=== PATIENT | female | born 2005 | race Caucasian/White ===

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

== ENCOUNTER 2025-08-06 23:10 | Inpatient (IN) | payer OTHER ==
[~2025-08-06] VITALS: Ht 165.1 cm; Wt 77.5 kg
[2025-08-06] MEDS ORDERED: NS 1,000 ML IV ONE ×2 (23:13→23:50)
[2025-08-06 23:25] LABS: Calcium, Ionized (POC) 1.17 mmol/L (1.10-1.46); Chloride (POC) 103 mmol/L (98-108); Creatinine (POC) 0.8 mg/dL (0.6-1.0); Glucose (ISTAT POC) 101 mg/dL (70-99); Hematocrit (POC) 40.0 % (36.0-46.0); Hemoglobin (POC) 13.6 g/dL (12.0-16.0); Potassium (POC) 4.6 mmol/L (3.5-5.5); Sodium (POC) 144 mmol/L (135-148); Total CO2 (POC) 22 mmol/L (21-32)
[2025-08-06 23:38] LABS: BASOPHILS ABSOLUTE AUTO 0.02 K/mm3 (0.00-0.23); BASOPHILS PERCENT AUTO 0 % (0-2); EOSINOPHILS ABSOLUTE AUTO 0.04 K/mm3 (0.00-0.68); EOSINOPHILS PERCENT AUTO 0 % (0-6); Hematocrit 39.1 % (33.0-51.0); Hemoglobin 13.0 g/dL (11.5-16.0); IMMATURE GRAN ABSOLUTE AUTO 0.04 K/mm3 (0.00-0.10); IMMATURE GRAN PERCENT AUTO 0 % (0-1); LYMPHOCYTES ABSOLUTE AUTO 3.81 K/mm3 (0.84-5.20); LYMPHOCYTES PERCENT AUTO 33 % (21-46); MONOCYTES ABSOLUTE AUTO 0.86 K/mm3 (0.16-1.47); MONOCYTES PERCENT AUTO 7 % (4-13); Mean Corpuscular HGB Conc 33.2 g/dL (31.5-36.5); Mean Corpuscular Volume 90 fL (80-100); NEUTROPHILS ABSOLUTE AUTO 6.92 K/mm3 (1.96-9.15); NEUTROPHILS PERCENT AUTO 59 % (41-73); NRBC ABSOLUTE 0.00 K/mm3 (0.00-0.02); NRBC Auto 0.0 /100 WBC (0.0-0.2); Platelet Count 268 K/mm3 (150-400); RDW Coefficient Variation 11.6 % (11.7-14.2); RDW Standard Deviation 38.0 fL (35.1-46.3)
[2025-08-06] MEDS ORDERED: Sodium Bicarb 8.4% 1 MEQ/ML 50 ML Vial IV ONE (23:45)
[2025-08-06] MEDS ORDERED: Ipratropium/Albuterol SulF 2.5-0.5MG/3 ML Amp INH ONE (23:50)
[2025-08-06 23:54] LABS: Ethanol (Alcohol), Blood, Med <3 mg/dL; Magnesium, Blood 2.1 mg/dL (1.6-2.4); Salicylate <1.7 mg/dL (2.8-20.0); Thyroid Stimulating Hormone 35.100 uIU/mL (0.360-4.800)
[2025-08-06 23:56] LABS: Acetaminophen, Random <2.0 ug/mL (10.0-30.0); Alanine Aminotransfer (ALT/SGP 23 U/L (12-78); Albumin, Blood 3.9 g/dL (3.4-5.0); Albumin/Globulin Ratio 1.1 (0.8-1.8); Anion Gap 11 mmol/L (3-11); Aspartate Aminotrans (AST/SGOT 14 U/L (12-37); Bilirubin, Total 0.4 mg/dL (0.1-1.0); Blood Urea Nitrogen 9 mg/dL (8-24); CO2, Blood 24 mmol/L (21-32); Calcium, Blood 8.7 mg/dL (8.5-10.1); Chloride, Blood 107 mmol/L (98-108); Creatinine, Blood 0.76 mg/dL (0.40-1.00); Globulin, Blood 3.4 g/dL (2.2-4.0); Glucose, Blood 104 mg/dL (70-99); Potassium, Blood 4.5 mmol/L (3.5-5.5); Sodium, Blood 137 mmol/L (136-145); Total Protein, Blood 7.3 g/dL (6.4-8.2)
[2025-08-07] VITALS (30 sets, daily range): BP systolic 77–117; BP diastolic 43–107
[2025-08-07] MEDS ORDERED: Midazolam HCL 50 MG in NS 40 ML IV PRN (00:05)
[2025-08-07] MEDS ORDERED: FentaNYL Citrate 50 MCG/ML 2 ML Injection IV ONE (00:05)
[2025-08-07] MEDS ORDERED: Sodium Bicarb 8.4% Inj 150 MEQ in Dextrose 5% 1,000 ML IV SCH (00:10)
[2025-08-07 01:03] LABS: pH Blood Venous 7.26 (7.34-7.37)
[2025-08-07 02:10] LABS: Source, Urine Clean Catch
[2025-08-07 02:13] LABS: Glucose Qualitative, Urine Neg (Neg); Ketones, Urine Neg (Neg); Leukocyte Esterase, Urine Neg (Neg); Protein, Urine 1+ (Neg); Specific Gravity, Urine 1.010 (1.003-1.022); Urobilinogen, Urine NORM (Normal)
[2025-08-07 02:14] LABS: Bilirubin, Urine 2+ (Neg); Color, Urine Yellow (P-Yellow)
[2025-08-07 02:39] LABS: U Amphetamine Screen Not Detected; U Barbiturate Screen Not Detected; U Benzodiazapine Screen Not Detected; U Buprenorphine Screen Not Detected; U Cannabinoids Screen Not Detected; U Cocaine Screen Not Detected; U Methadone Screen Not Detected; U Methamphetamine Screen Not Detected; U Opiates Screen Not Detected; U Oxycodone Screen Not Detected; U Phencyclidine Screen Not Detected
[2025-08-07] MEDS ORDERED: FLU VACC TS2025-26(6MOS UP)/PF 45 MCG/0.5 ML SYRINGE IM SCH (04:20)
[2025-08-07] MEDS ORDERED: Albuterol 2.5 MG/3 ML VIAL INH PRN (04:25)
--- NOTE | 2025-08-07 05:00 | NUR ---
ASSUMED CARE. PT ARRIVED FROM ER VIA STRETCH. PT CRYING AND CAN FOLLOW COMMANDS. SODIUM BICARB INFUSING AT 150. VERSED AT 10 AND WEANED OF. PROPOFOL STARTED AT 10 MICS. PTBP 86/42 ANDFENTANYL DECREASED TOP 100 MICS. OG DRAING BRIGHT GREE SUBSTANCE. VENT AT AC 16, TV350, PEEP 5, AND FIO2 40%. F/C DRAING ALISSA SUBSTANCE.
--- NOTE | 2025-08-07 05:00 | NUR ---
END OF SHIFT. PT ARRIVED AT 5AM. PT CRYING BUT FOLLOWS COMMANDS. VERSED OFF. BP SOFT WITH MAP 58. FENTANYL AT 150 MICS AND TITRATED DOWN. PROPFOL STARTED. DR. WALDEN UPDATED ABOUT SOFT BP AND FENTANYLD/C. LR 500CC BOLUS GIVEN. F/C PATENT. OG DRAINING BRIGHT GREEN SUBSTANCE. POISON CONTROL UPDATED.
[2025-08-07] MEDS ORDERED: Inderal 20 mg T20 MG PO (05:24)
[2025-08-07 05:51] LABS: BASOPHILS ABSOLUTE AUTO 0.03 K/mm3 (0.00-0.23); BASOPHILS PERCENT AUTO 0 % (0-2); EOSINOPHILS ABSOLUTE AUTO 0.01 K/mm3 (0.00-0.68); EOSINOPHILS PERCENT AUTO 0 % (0-6); Hematocrit 35.0 % (33.0-51.0); Hemoglobin 11.7 g/dL (11.5-16.0); IMMATURE GRAN ABSOLUTE AUTO 0.05 K/mm3 (0.00-0.10); IMMATURE GRAN PERCENT AUTO 1 % (0-1); LYMPHOCYTES ABSOLUTE AUTO 1.89 K/mm3 (0.84-5.20); LYMPHOCYTES PERCENT AUTO 21 % (21-46); MONOCYTES ABSOLUTE AUTO 0.38 K/mm3 (0.16-1.47); MONOCYTES PERCENT AUTO 4 % (4-13); Mean Corpuscular HGB Conc 33.4 g/dL (31.5-36.5); Mean Corpuscular Volume 90 fL (80-100); NEUTROPHILS ABSOLUTE AUTO 6.78 K/mm3 (1.96-9.15); NEUTROPHILS PERCENT AUTO 74 % (41-73); NRBC ABSOLUTE 0.00 K/mm3 (0.00-0.02); NRBC Auto 0.0 /100 WBC (0.0-0.2); Platelet Count 158 K/mm3 (150-400); RDW Coefficient Variation 11.7 % (11.7-14.2); RDW Standard Deviation 37.9 fL (35.1-46.3)
[2025-08-07] MEDS ORDERED: Pantoprazole Sodium 40 MG Injection IV SCH (06:00)
[2025-08-07 06:14] LABS: Alanine Aminotransfer (ALT/SGP 19.0 U/L (12-78); Albumin, Blood 3.1 g/dL (3.4-5.0); Albumin/Globulin Ratio 1.1 (0.8-1.8); Anion Gap 9.0 mmol/L (3-11); Aspartate Aminotrans (AST/SGOT 11.0 U/L (12-37); Bilirubin, Total 0.8 mg/dL (0.1-1.0); Blood Urea Nitrogen 7.0 mg/dL (8-24); CO2, Blood 24.0 mmol/L (21-32); Calcium, Blood 8.1 mg/dL (8.5-10.1); Chloride, Blood 111.0 mmol/L (98-108); Creatinine, Blood 0.53 mg/dL (0.40-1.00); Globulin, Blood 2.7 g/dL (2.2-4.0); Glucose, Blood 117.0 mg/dL (70-99); Magnesium, Blood 1.9 mg/dL (1.6-2.4); Potassium, Blood 3.3 mmol/L (3.5-5.5); Sodium, Blood 141.0 mmol/L (136-145); Total Protein, Blood 5.8 g/dL (6.4-8.2)
[2025-08-07] MEDS ORDERED: FentaNYL Citrate 50 MCG/ML 2 ML Injection IV PRN (06:20)
[2025-08-07] MEDS ORDERED: Midazolam HCl 1MG / ML 2ML Vial IV ONE (06:54)
[2025-08-07] MEDS ORDERED: Etomidate 2MG / ML 10ML Vial IV ONE (06:54)
[2025-08-07] MEDS ORDERED: SuccINYLCHOLINE Chloride 100 MG/5 ML 5MLSYR IV ONE (06:54)
[2025-08-07] MEDS ORDERED: Naloxone HCl 0.4MG / ML 1ML Vial IV ONE (06:54)
[2025-08-07] MEDS ORDERED: Cetylpyridinium Chloride 1 EA MISC MT SCH (08:00)
[2025-08-07] MEDS ORDERED: Lactobacil 2-S.Thermo-Bifido 1 1 Cap PO SCH ×2 (09:00)
[2025-08-07] MEDS ORDERED: Enoxaparin 40 MG/0.4 ML SYR SC SCH (09:00)
--- NOTE | 2025-08-07 11:32 | NUR ---
"Spiritual Care | Pt. Request Pt. is awake in bed and cautiously welcomes my visit. Facilitated a short life review. Listened with empathy and a calm presence. COnsidered matters of the Pts. mylene and belief. Pt. verbalized that she was baptized a Worship, but requested this dye reel operator helper NOT contact local spiritual support. Affirmed our objective would be to give spiritual support and encouragement. Pt. welcomed this dye reel operator helper to return."
[2025-08-07] MEDS ORDERED: Hydrogen Peroxide 1.5 % Solution MT SCH (12:00)
--- NOTE | 2025-08-07 19:13 | NUR ---
Patient in ICU today due to an overdose, managed by Poison Control. Patient extubated today without difficulty and now is interactive with surrounding and staff. Sandie from Poison Center updated on patient's condition, Poison Center is going to close the case as she is tox clear from their standpoint and Poison Control expresses that if there are any questions or concerns to give the center a call.
--- NOTE | 2025-08-07 20:40 | NUR ---
ASSUMPTION OF CARE/ASSESSMENT: ASSUMED CARE OF PT AT 1900; REPORT RECIEVED FROM JOSE D MENDOZA. PT IN BED, A&O X 4, WITHDRAWN AND FLAT. PT ABLE TO MAKE NEEDS KNOWN. 1:1 SITTER IN DOORWAY FOR PT SAFETY; PT HERE OF PROPANOLOL OD. PT VERBALIZES SUICIDAL THOUGHTS BUT NO ACTIVE PLAN OR INTENTIONS. PT CURRENTLY ON RA, LUNGS CLEAR T/O AND DENIES SOB. SR ON MONITOR WITH HR 60'S, SBP 90'S AND DENIES CHEST PAIN/PRESSURE. PT USING TOILET IN ROOM FOR ELIMINATION NEEDS; SBA FOR ABULATION. PT ABLE TO MOVE SELF IN BED. TOLERATING PO INTAKE; INTERMITTEN NAUSEA THAT RESOLVES. RAC/LAC PIV PATENT AND SALINE LOCKED. CALL LIGHT IN REACH.
--- NOTE | 2025-08-07 21:43 | NUR ---
PROVIDER CONTACT: PT HR DROPPING TO LOW 43 AND WILL COME BACK UP TO THE 50'S. MAPS DROPPING TO 60-62. CALL PLACED TO SASHA ANDERSON; NO CONCERNS AT THIS TIME, NO NEW ORDERS AT THIS TIME. WILL CONTINUE TO MONITOR HR AND BP.
[2025-08-08] VITALS (18 sets, daily range): BP systolic 99–119; BP diastolic 63–92
--- NOTE | 2025-08-08 06:23 | NUR ---
SHIFT SUMMARY: NO ACUTE CHANGES OVERNIGHT. PT REMAINED IN SB-SR WITH HR 50-70, OCCASSIONALLY DROPS TO 40'S BUT DOES NOT SUSTAIN. UPDATED PROVIDER ON BRADYCARDIA AND THEY WERE NOT CONCERNED AT THIS TIME. SBP 90-110'S AND DENIES CHEST PAIN/PRESSURE. REMAINS ON RA, DENIES SOB, SPO2 96<. PT UP TO VOID IN ROOM ONCE THIS SHIFT. PT SLEPT ON AND OFF THROUGHOUT THE NIGHT. 1:1 SITTER IN DOORWAY FOR PT SAFETY. PT TOLERATING DIET, ADVANCED TO REGULAR DIET AND IS EATING A BREAKFAST SANDWICH THIS MORNING. PT ABLE TO MAKE NEEDS KNOWN.
--- NOTE | 2025-08-08 15:55 | NUR ---
Patient in care of [facility], security present, family aware of transfer, report phone to receiving KELLY Luu.
== END 2025-08-08 15:53 | DRG 917 ==
LOC: ER 23:10 → ICUE 08-07 04:07
PROVIDERS: Student in an Organized Health Care Education/Training Program; ADMIT Student in an Organized Health Care Education/Training Program
PROC: 5A1935Z Respiratory Ventilation, Less than 24 Consecutive Hours (ICD-10-PCS; principal; 2025-08-06)
PROC: 0BH17EZ Insertion of Endotracheal Airway into Trachea, Via Natural or Artificial Opening (ICD-10-PCS; 2025-08-06)
PROC: 0D9670Z Drainage of Stomach with Drainage Device, Via Natural or Artificial Opening (ICD-10-PCS; 2025-08-06)
DX: T44.7X2A Poisoning by beta-adrenoreceptor antagonists, intentional self-harm, initial encounter (principal); J96.01 Acute respiratory failure with hypoxia; J96.02 Acute respiratory failure with hypercapnia; R45.851 Suicidal ideations; E87.20 Acidosis, unspecified; J98.19 Other pulmonary collapse; G93.40 Encephalopathy, unspecified; J45.909 Unspecified asthma, uncomplicated; I95.9 Hypotension, unspecified; R94.31 Abnormal electrocardiogram [ECG] [EKG]; D72.829 Elevated white blood cell count, unspecified; R56.9 Unspecified convulsions; E87.6 Hypokalemia; Z91.51 Personal history of suicidal behavior
CPT/HCPCS: 31500; 36415; 51702; 70450; 71045; 71260; 72125; 74177; 80047; 80053; 80320; 82803; 82947; 83605; 83735; 84145; 84439; 84443; 84703; 85014; 85025; 93005; 93010; 94002; 94640; 94664; 96374-59; 96375-59; 96376-59; 99285-25; G0480; J0330; J1650; J2250; J2312; J2470; J2704; J3010; J7030; J7070; J7120; Q9967